=== PATIENT | male | born 1980 | race Caucasian/White ===

== ENCOUNTER 2017-01-05 20:43 | Emergency (ER) | payer BC ==
--- NOTE | 2017-01-05 21:07 | UC ---
Upper Extremity HPI - HPI Summary HPI Summary: 36 year old male presents with left shoulder injury - History of Current Complaint Stated Complaint: LEFT SHOULDER INJURY Time Seen by Provider: 01/05/17 21:07 - Allergies/Home Medications Allergies/Adverse Reactions: Allergies Allergy/AdvReac Type Severity Reaction Status Date / Time penicill Allergy Difficulty Uncoded 01/05/17 21:18 Breathing seasonal Allergy Sneezing Uncoded 01/05/17 21:18 Home Medications: Home Medications Acetaminophen TAB* [Tylenol TAB*] 325 mg PO Q8H PRN 01/05/17 [History Confirmed 01/05/17] Cetirizine* [ZyrTEC 10 MG TAB*] 10 mg PO DAILY 01/05/17 [History Confirmed 01/05] Ibuprofen TAB* [Motrin TAB* 600 MG] 600 mg PO Q12H PRN 01/05/17 [History Confirmed 01/05/17] Ibuprofen TAB* [Motrin TAB* 600 MG] 600 mg PO SEE INSTRUCTIONS PRN 01/05/17 [ History Confirmed 01/05/17] Naproxen 220 mg PO SEE INSTRUCTIONS PRN 01/05/17 [History Confirmed 01/05/17] Omeprazole CAP* [Prilosec CAP* 20 MG] 20 mg PO DAILY 01/05/17 [History Confirmed 01/05/17] Review of Systems Constitutional: Negative Skin: Negative Eyes: Negative ENT: Negative Respiratory: Negative Cardiovascular: Negative Gastrointestinal: Negative Genitourinary: Negative Motor: Negative Neurovascular: Negative Musculoskeletal: Arthralgia, Myalgia, Other: - LEFT SHOULDER PAIN Neurological: Negative Psychological: Negative All Other Systems Reviewed And Are Negative: Yes Physical Exam Triage Information Reviewed: Yes Eye Exam: Normal ENT Exam: Normal Dental Exam: Normal Neck exam: Normal Neck: Positive: 1 Respiratory Exam: Normal Cardiovascular Exam: Normal Abdominal Exam: Normal Musculoskeletal: Positive: Other: - LEFT SHOULDER PAIN Neurological Exam: Normal Psychological Exam: Normal Skin Exam: Normal Upper Extremity Course/Dx - Differential Dx/Diagnosis Provider Diagnoses: LEFT SHOULDER PAIN Discharge - Discharge Plan Condition: Stable Disposition: HOME Prescriptions: Acetaminop/Codeine 30 MG TAB* [Tylenol/Codeine 30 MG TAB*] 1 tab PO Q8H PRN #9 tab MDD 3 PRN Reason: Pain Scale 6-10 Methocarbamol [Robaxin-750 MG TAB] 750 mg PO Q8H PRN #30 tab PRN Reason: Spasms Methylprednisolone [Medrol Dosepak 4 MG*] 4 mg PO .SEE LARRY INSTRUCTION #21 tab Patient Education Materials: Shoulder Pain (ED) Referrals: Wilfredo Levin DO [Primary Care Provider] - If Needed
[2017-01-05] MEDS ORDERED: methylPREDNISolone 125 MG* 2 ML VIAL IM ONE (21:15)
[2017-01-05 21:39] VITALS: BP 134/82
[2017-01-05] MEDS ORDERED: Acetaminop/Codeine 30 MG TAB* 1 TAB (300 MG/30 MG) PO ONE (22:04)
== END 2017-01-05 22:19 | disposition home or self-care (01) ==
LOC: UCCORT 20:43
DX: M25.512 Pain in left shoulder (principal); X58.XXXA Exposure to other specified factors, initial encounter; Y92.9 Unspecified place or not applicable
CPT/HCPCS: 96372; 99202; A9270-GY; G0463; J2930

== ENCOUNTER 2017-10-06 09:29 | Emergency (ER) | payer BC ==
[2017-10-06 10:16] VITALS: BP 129/74
--- NOTE | 2017-10-06 11:38 | RAD ---
HISTORY: Low back pain and left hip pain COMPARISONS: None VIEWS: 5 , Frontal, lateral, coned-down lateral sacral, and bilateral oblique views of the lumbar spine. FINDINGS: ALIGNMENT: There is straightening of the normal lumbar lordosis. VERTEBRAL BODIES: The vertebral body heights are normal. The interpedicular distances are normal. There is mild anterolateral marginal osteophyte formation. JOINTS: There is facet osteoarthritis most pronounced at L5-S1. INTERVERTEBRAL DISCS: There is diffuse loss of intervertebral disc height. SOFT TISSUE: Unremarkable. OTHER: The pelvis is unremarkable. The lung bases are clear. IMPRESSION: 1. STRAIGHTENING OF THE LUMBAR LORDOSIS. 2. MILD DEGENERATIVE DISC DISEASE AND OSTEOARTHRITIS MOST PRONOUNCED AT L5-S1
--- NOTE | 2017-10-06 11:40 | RAD ---
INDICATION: Left hip pain COMPARISON: None TECHNIQUE: An AP view of the pelvis and AP views of the hip in neutral and abducted position were obtained FINDINGS: Bones: There are no acute bony findings. 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 There is minor hypertrophic change about the left acetabulum Joint spaces: The hips articulate normally. The joint spaces are preserved. SI joints/symphysis: The SI joints and symphysis are intact. Other: None IMPRESSION: APPARENT MILD COXA VALGA DEFORMITIES. MILD LEFT ACETABULAR OVERGROWTH
--- NOTE | 2017-10-06 15:22 | UC ---
Hip/Pelvis Pain - HPI Summary HPI Summary: 37 yo gentleman c/o L hip and L lower back pain s/p feeling "pop" yesterday when lifted knee to put on sock. Hurts today, not better. Pain occasionally radiates L lat thigh on downwards. No p/d/w. No b/b. No rash. No sob. Denies hx back pain, denies previous injury. - History Of Current Complaint Chief Complaint: UCLowerExtremity Stated Complaint: LFT LEG/HIP PAIN Time Seen by Provider: 10/06/17 10:43 Hx Obtained From: Patient Pain Intensity: 7 Pain Scale Used: 0-10 Numeric - Allergies/Home Medications Allergies/Adverse Reactions: Allergies Allergy/AdvReac Type Severity Reaction Status Date / Time penicill Allergy Difficulty Uncoded 10/06/17 10:05 Breathing seasonal Allergy Sneezing Uncoded 10/06/17 10:05 Home Medications: Home Medications Naproxen TAB* [Naprosyn 250 mg TAB*] 250 mg PO Q8H PRN 10/06/17 [History Confirmed 10/06/17] PMH/Surg Hx/FS Hx/Imm Hx Previously Healthy: Yes - Surgical History Surgical History: Yes Surgery Procedure, Year, and Place: left arm cubital tunnel. LEFT TESTICLE SURGERY A CHILD - Family History Known Family History: Positive: Unknown - Social History Alcohol Use: Occasionally Substance Use Type: None Smoking Status (MU): Former Smoker Review of Systems Constitutional: Negative Skin: Negative Eyes: Negative ENT: Negative Respiratory: Negative Cardiovascular: Negative Gastrointestinal: Negative Genitourinary: Negative Motor: Other - see hpi Neurovascular: Other - see hpi Musculoskeletal: Other: - see hpi Neurological: Negative Psychological: Negative Is Patient Immunocompromised?: No All Other Systems Reviewed And Are Negative: Yes Physical Exam Triage Information Reviewed: Yes Appearance: Well-Appearing, Well-Nourished Vital Signs: Initial Vital Signs Temp 98.1 F 10/06/17 10:08 Pulse 83 10/06/17 10:08 Resp 18 10/06/17 10:08 BP 129/74 10/06/17 10:08 Pulse Ox 99 10/06/17 10:08 Vital Signs Reviewed: Yes Eye Exam: Normal - grossly normal ENT Exam: Normal - grossly normal Neck exam: Normal - no c/o tender. Moves well. Respiratory Exam: Normal - no tachypnea, no dypsnea Cardiovascular Exam: Normal - heart rate normal. No diaphoresis. Abdominal Exam: Normal Abdomen Description: Positive: Nontender Musculoskeletal Exam: Other - Tender L lower back just above iliac crest and lat lower lumbar upper sacral area. Tender sciatic notch left. ROM not fully tested d/t pain (ext rotation, flex painful) Neurological Exam: Normal - grossly nonfocal. Distal BLE sens LT present. Pat reflex bilat equal. Gait steady, limited by limp d/t pain L hip / low back L Psychological Exam: Normal - conversing easily and appropriately Skin Exam: Normal - no visible or reported rash Hip Injury Course/Dx - Course Course Of Treatment: Reviewed Hip and lumbar xrays with pt. (in [facility]). Clarifies no known previous injury, used to play football, without issue. Did wear braces as a child. L hip - apparent mild coxa valga deformities, mild left acetabular overgrowth. Lumbar sacral - straightening lordosis, mild dgd and oa, mane L5-S1. Reports in [facility]. Suspect muscle strain (consider ileopsoas) with concomitant sciatic discomfort secondary. Complicated by djd, and mild hip deformity. - Differential Dx/Diagnosis Provider Diagnoses: Acute low back and hip strain L Discharge - Sign-Out/Discharge Documenting (check all that apply): Discharge - Discharge Plan Condition: Stable Disposition: HOME Prescriptions: Cyclobenzaprine TAB* [Flexeril 10 MG TAB*] 10 mg PO Q8H PRN #21 tab PRN Reason: Spasms Naproxen Sodium [Naproxen Sodium 500 MG TAB] 500 mg PO Q12H PRN #30 tab PRN Reason: Pain Patient Education Materials: Muscle Strain (ED), Sciatica (ED) Forms: *Work Release Referrals: Wilfredo Levin DO [Primary Care Provider] - Black Peck MD [Medical Doctor] - Additional Instructions: Acute left hip / back strain. Alternate ice / heat as needed. Slow to return to full range of motion. Follow up primary care physician, in the next couple weeks, if possible. Seek medical attention for worse or new problems in the meantime. Possible ileopsoas strain. Follow up with orthopedic surgeon in the next 2 weeks. - Billing Disposition and Condition Condition: STABLE Disposition: HOME
== END 2017-10-06 12:06 | disposition home or self-care (01) ==
LOC: UCCORT 09:29
DX: S76.012A Strain of muscle, fascia and tendon of left hip, initial encounter (principal); M54.5 Low back pain; M21.852 Other specified acquired deformities of left thigh; M89.38 Hypertrophy of bone, other site; M51.37 Other intervertebral disc degeneration, lumbosacral region; M40.57 Lordosis, unspecified, lumbosacral region; M47.897 Other spondylosis, lumbosacral region; Z91.048 Other nonmedicinal substance allergy status; Z91.09 Other allergy status, other than to drugs and biological substances; Z87.891 Personal history of nicotine dependence; X50.9XXA Other and unspecified overexertion or strenuous movements or postures, initial encounter; Y92.9 Unspecified place or not applicable
CPT/HCPCS: 72110; 99212; G0463